=== PATIENT | female | born 1990 | race Caucasian/White ===

== ENCOUNTER → 2020-04-11 14:02 | Outpatient (BNVA) | payer OTHER, SELFPAY | PROVIDERS: Family Provider Nurse Practitioner; PCP Nurse Practitioner; Visit Provider Nurse Practitioner Women's Health | DX: Z11.3 Encounter for screening for infections with a predominantly sexual mode of transmission (principal); Z01.419 Encounter for gynecological examination (general) (routine) without abnormal findings; Z30.9 Encounter for contraceptive management, unspecified; Z30.015 Encounter for initial prescription of vaginal ring hormonal contraceptive | CPT/HCPCS: 87491; 87591; 87661; 88175 ==

== ENCOUNTER 2022-12-17 11:04 | Outpatient (CLI) | payer OTHER, SELFPAY ==
--- NOTE | 2022-12-17 11:19 | MM_ITS ---
WS: [id number] DIAGNOSTIC BILATERAL DIGITAL BREAST TOMOSYNTHESIS MAMMOGRAPHY WITH CAD RIGHT breast ultrasound, limited HISTORY: RT BREAST LUMP COMPARISON: Prior ultrasound 12/14/2021. TECHNIQUE: Bilateral craniocaudad, mediolateral oblique, and mediolateral views are submitted with to mosifeanyi and SM. Spot compression RIGHT CC and MLO. Computer aided detection utilized. Breast composition: The breasts are extremely dense, which lowers the sensitivity of mammography. 2 a djacent triangular markers are placed over the upper-outer quadrant of the RIGHT breast. This is in t he area the palpable abnormalities. There are 2 partially obscured masses in the upper outer quadrant . The largest measures 3.8 cm. Smaller mass measures 2.3 cm. Negative LEFT breast. RIGHT breast ultrasound, limited. Ultrasound is directed to the palpable areas. Hypoechoic well-circumscribed mass at 10:00, 6 cm from the nipple measures 1.5 x 1.2 x 0.7 cm. Additional smaller mass at 10:00, 1 cm from the nipple measur es 0.8 x 0.8 x 0.7 cm. There is an additional mass at 11:00, 3 cm from the nipple measuring 1.8 x 2.0 x 2.3 cm. MM/[place] [id number] IMPRESSION: BI-RADS: 3-Probably Benign FOLLOW UP: 6 Month Follow-up 3 well-circumscribed hypoechoic masses upper outer quadrant of the RIGHT breast . Very minimal change in size since the prior ultrasound of 12/14/2021. There is a new smaller mass measuring less than 1 cm identified on today's exam. Simila r to the adjacent solid masses. Most consistent with benign fibroadenomas. Gomez mmend short-term 6 month follow-up to document continued stability.
== END 2022-12-17 11:05 | disposition home or self-care (01) ==
PROVIDERS: PCP Nurse Practitioner; Visit Provider Nurse Practitioner Family
DX: N63.11 Unspecified lump in the right breast, upper outer quadrant (principal)
CPT/HCPCS: 76642; 77062; G0279

== ENCOUNTER 2023-07-19 09:49 | Outpatient (CLI) | payer OTHER, SELFPAY ==
--- NOTE | 2023-07-19 10:21 | MM_ITS ---
WS: [id number] DIAGNOSTIC RIGHT DIGITAL TOMOSYNTHESIS MAMMOGRAPHY WITH CAD. RIGHT breast ultrasound, limited HISTORY: 6MFU COMPARISON: 12/17/2022 Technique: CC, MLO and ML views. Spot compression RIGHT CC and MLO. Breast composition: The breasts are extremely dense, which lowers the sensitivity of mammography. Par tially obscured masses are reidentified in the upper outer quadrant. 2 masses are identified. These h ave not changed significantly by mammography since the prior study. These will be further evaluated b y ultrasound. RIGHT breast ultrasound, limited. Ultrasound is directed to the upper outer quadrant of the RIGHT breast. Hypoechoic well-circumscribed mass at 10:00, 6 cm from the nipple measures 2.0 x 2.2 x 1.3 cm. Second solid hypoechoic mass at 10:00, 1 cm from the nipple measuring 0.9 x 0.8 x 0.7 cm. Third solid mass at 11:00, 8 cm from the nipple measures 2.0 x 1.8 x 1.4 cm. Fourth solid mass at 11:00, 2 cm the nipple is well-circumscribed measuring 1.0 x 0.9 x 0.5 cm. IMPRESSION: MM/[place] [id number] BI-RADS: 3-Probably Benign FOLLOW UP: 6 Month Follow-up Recommend 6-month RIGHT breast ultrasound only follow-up to document continued stability of the masses in the upper outer quadrant of the RIGHT breast. These masses will need to be serially evaluated for total of 2 years.
== END 2023-07-19 09:50 | disposition home or self-care (01) ==
LOC: RAD 09:49
PROVIDERS: PCP Nurse Practitioner Family; Visit Provider Nurse Practitioner Family
DX: R92.8 Other abnormal and inconclusive findings on diagnostic imaging of breast (principal); N63.11 Unspecified lump in the right breast, upper outer quadrant
CPT/HCPCS: 76642; 77061; G0279

== ENCOUNTER 2024-02-20 10:55 | Outpatient (CLI) | payer OTHER, SELFPAY ==
--- NOTE | 2024-02-20 11:05 | US_ITS ---
WS: [id number] ULTRASOUND RIGHT BREAST HISTORY: FIBROADENOMA OF R BREAST COMPARISON: 07/19/2023, 12/17/2022, 12/14/2021 TECHNIQUE: 2-D and Doppler. Ultrasound to the upper outer quadrant of the RIGHT breast. Well-circumscribed solid hypoechoic nodule 10:00, 6 cm from the nipple measures 2.0 x 1.9 x 1.2 cm. N ot significantly changed. Mass 11:00, 8 cm from the nipple measures 1.0 x 0.5 x 0.9 cm has decreased in size. Mass in the RIGHT breast at 11:00, 2 cm from the nipple measures 0.9 x 0.8 x 0.5 cm. No interval linder ge. Additional mass at 10:00 measures 1.2 x 1.1 x 0.7 cm. No significant interval change. US/US breast RT limited* [id number] IMPRESSION: BI-RADS: 2-Benign FOLLOW-UP: 1 Year Follow-up Multiple solid masses within the upper outer quadrant of the RIGHT breast are s table. These are solid masses and probably fibroadenomas. No additional follow- up necessary at this time. If any of these masses increase in size or there is a new area of pain additional imaging can be performed at that time.
== END 2024-02-20 10:56 | disposition home or self-care (01) ==
LOC: RAD 10:55
PROVIDERS: PCP Nurse Practitioner; Visit Provider Nurse Practitioner
DX: D24.1 Benign neoplasm of right breast (principal); N63.11 Unspecified lump in the right breast, upper outer quadrant
CPT/HCPCS: 76642